=== PATIENT | female | born 1980 | race Caucasian/White ===

== ENCOUNTER 2017-03-01 18:23 | Emergency (ER) | payer MEDICAID, OTHER ==
[2017-03-01 18:23] VITALS: BMI 35.4
[2017-03-01 18:33] VITALS: BP 117/76; PULSE 88; RESP 20; TEMP 97.9; O2SAT 98
--- NOTE | 2017-03-01 19:51 | C.PDOC ---
History Of Present Illness 36 year old female presents to the ED for evaluation after she was bit on her face by her pet rabbit around 4 days ago. Patient has been applying Neosporin and Betadine to the area without relief. She states the area is becoming increasingly warm, swollen and itchy. Patient notes she was fully immunized for rabies when she was bit by a stray dog last year. Patient is UTD with Tetanus immunization. She denies fever, chills. Time Seen by Provider: 03/01/17 19:21 Chief Complaint (Nursing): Bite History Per: Patient History/Exam Limitations: no limitations Onset/Duration Of Symptoms: Days (4) Current Symptoms Are (Timing): Still Present Quality Of Symptoms: Itching, Swollen Additional History Per: Patient - Animal Bite Description Of The Animal: Family Pet Reports Animal Appears: Well Reports Animal's Immunization Status: UTD Past Medical History Reviewed: Historical Data, Nursing Documentation, Vital Signs Vital Signs: Last Vital Signs Temp 97.9 F 03/01/17 18:30 Pulse 88 03/01/17 18:30 Resp 20 03/01/17 18:30 BP 117/76 03/01/17 18:30 Pulse Ox 98 03/01/17 23:30 - Medical History PMH: Hypercholesterolemia, Hypothyroidism Denies: Depression Surgical History: No Surg Hx - [facility] Procedures NEBULIZER THERAPY (07/03/13) Family History: States: Unknown Family Hx - Social History Hx Tobacco Use: No Hx Alcohol Use: No Hx Substance Use: No - Immunization History Hx Tetanus Toxoid Vaccination: Yes Hx Influenza Vaccination: Yes Hx Pneumococcal Vaccination: Yes Review Of Systems Constitutional: Negative for: Fever, Chills Skin: Positive for: Other (rabbit bite to face; area is warm, swollen and itchy ) Physical Exam - Physical Exam Appears: Non-toxic, No Acute Distress Skin: Warm, Dry, Other (small area of erythema to right cheek. no fluctuance, induration, drainage or streaking ) Head: No Tenderness, No Swelling (orbital ), No Abrasion, No Laceration Eye(s): bilateral: Normal Inspection Oral Mucosa: Moist Neurological/Psych: Oriented x3, Normal Speech, Normal Cognition ED Course And Treatment O2 Sat by Pulse Oximetry: 98 (on RA) Pulse Ox Interpretation: Normal Progress Note: Benadryl PO administered. On reassessment, patient is resting comfortably, showing no signs of distress and reports an improvement in her symptoms. Patient will be given Rx for PO antibiotics and advised to take anti- allergy tablets. Advised to follow up within her PMD in 2 days for a wound check. 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 - Scribe Statement The provider has reviewed the documentation as recorded by the Scribe (Lashell Vazquez) All medical record entries made by the Scribe were at my direction and personally dictated by me. I have reviewed the chart and agree that the record accurately reflects my personal performance of the history, physical exam, medical decision making, and the department course for this patient. I have also personally directed, reviewed, and agree with the discharge instructions and disposition.
== END 2017-03-01 20:01 | disposition home or self-care (01) ==
LOC: C.ER 18:23
DX: S01.451A Open bite of right cheek and temporomandibular area, initial encounter (principal); W64.XXXA Exposure to other animate mechanical forces, initial encounter